=== PATIENT | female | born 1975 | race African-American/Black ===

== ENCOUNTER → 2017-06-03 | Outpatient (CLI) | payer BC, OTHER ==
--- NOTE | 2017-06-03 16:05 | RAD ---
DATE: 06/03/2017 EXAM: DIGITAL SCREEN BILAT W/CAD HISTORY: Routine screening COMPARISON: None This study was interpreted with the benefit of Computerized Aided Detection (CAD). FINDINGS: Breast Density: SCATTERED The breast parenchyma shows scattered fibroglandular densities. Breast parenchyma level B. There are no dominant suspicious masses, suspicious microcalcifications or evidence of architectural distortion. IMPRESSION: Negative mammogram BI-RADS CATEGORY: 1 NEGATIVE RECOMMENDED FOLLOW-UP: 12M 12 MONTH FOLLOW-UP PQRS compliance statement: Patient information was entered into a reminder system with a target due date 06/03/2018 for the next mammogram. Mammography is a sensitive method for finding small breast cancers, but it does not detect them all and is not a substitute for careful clinical examination. A negative mammogram does not negate a clinically suspicious finding and should not result in delay in biopsying a clinically suspicious abnormality. "Our facility is accredited by the [employer] Mammography Program."
== END | disposition home or self-care (01) ==
LOC: MAMMO 11:39
PROVIDERS: ATTEND Nurse Practitioner
DX: Z12.31 Encounter for screening mammogram for malignant neoplasm of breast (principal)
CPT/HCPCS: G0202; 77067

== ENCOUNTER 2018-02-22 14:19 | Emergency (ER) | payer BC, OTHER ==
[~2018-02-22] VITALS: Ht 154.9 cm; Wt 75.6 kg
[2018-02-22] MEDS ORDERED: PRED20TA PO (14:59)
--- NOTE | 2018-02-22 15:00 | PHYS DOC ---
Past History Past Medical History: Hypertension Past Surgical History: Other Adult General Chief Complaint Chief Complaint: INSECT BITE HPI HPI Patient is a 42-year-old female who presents for evaluation of erythema and blisters to the left posterior ankle. She states that she was recently working in the yard and may have come into contact with poison kamini. She states the blistered area is itchy and sometimes burning. She is noted complaints this time. She is alert and oriented 4, calm, and appears to be no distress. She denies fevers or chills, other skin lesions, or any other complaints. She denies seeing an insect bite her. Review of Systems Review of Systems Constitutional: Denies fever or chills [] Eyes: Denies change in visual acuity, redness, or eye pain [] HENT: Denies nasal congestion or sore throat [] Respiratory: Denies cough or shortness of breath [] Cardiovascular: No additional information not addressed in HPI [] GI: Denies abdominal pain, nausea, vomiting, bloody stools or diarrhea [] : Denies dysuria or hematuria [] Musculoskeletal: Denies back pain or joint pain [] Integument: blisters to left posterior ankle Neurologic: Denies headache, focal weakness or sensory changes [] Endocrine: Denies polyuria or polydipsia [] All other systems were reviewed and found to be within normal limits, except as documented in this note. Allergies Allergies Allergies Coded Allergies Type Severity Reaction Last Updated Verified Penicillins Allergy Unknown Rash 02/22/18 Yes Physical Exam Physical Exam Constitutional: Well developed, well nourished, no acute distress, non-toxic appearance. [] HENT: Normocephalic, atraumatic, bilateral external ears normal, oropharynx moist, no oral exudates, nose normal. [] Eyes: PERRLA, EOMI, conjunctiva normal, no discharge. [] Neck: Normal range of motion, no tenderness, supple, no stridor. [] Cardiovascular:Heart rate regular rhythm, no murmur [] Lungs & Thorax: Bilateral breath sounds clear to auscultation [] Abdomen: Bowel sounds normal, soft, no tenderness, no masses, no pulsatile masses. [] Skin: Warm, dry [] linear erythematous lesion with vesicle strongly suspicious for poison kamini contact dermatitis Back: No tenderness, no CVA tenderness. [] Extremities: No tenderness, no cyanosis, no clubbing, ROM intact, no edema. [] Neurologic: Alert and oriented X 3, normal motor function, normal sensory function, no focal deficits noted. [] Psychologic: Affect normal, judgement normal, mood normal. [] Current Patient Data Vital Signs Vital Signs Date Time Temp Pulse Resp B/P (MAP) Pulse Ox O2 Delivery O2 Flow Rate FiO2 02/22/18 14:19 98.4 78 18 97 Room Air EKG EKG [] Radiology/Procedures Radiology/Procedures [] Course & Med Decision Making Course & Med Decision Making Pertinent Labs and Imaging studies reviewed. (See chart for details) @1450 - Wound dressing applied, to be sent home with steroid therapy. Advised patient to follow up with her PCP in the next 2-3 days. Advised patient to return to the emergency department for new or worsening symptoms. Dragon Disclaimer Dragon Disclaimer This electronic medical record was generated, in whole or in part, using a voice recognition dictation system. Departure Departure: Impression: Primary Impression: Contact dermatitis Additional Impression: Poison kamini dermatitis Disposition: 01 HOME, SELF-CARE Condition: STABLE Referrals: ASHLEY DOLL APRN (PCP) Patient Instructions: Contact Dermatitis, Poison Kamini Additional Instructions: Take the steroids as prescribed. Follow-up with your doctor in the next 2-3 days. Return to the emergency department for new or worsening symptoms. Scripts Prednisone (PREDNISONE) 20 Mg Tablet 2 TAB PO DAILY, #15 TAB Two tablets daily for 5 days, then 1 tablet daily for 5 days Prov: MILAGROS BHATTI DO 02/22/18 Problem Qualifiers MILAGROS BHATTI DO Feb 22, 2018 15:00
[2018-02-22 15:10] VITALS: BP 93/65
== END 2018-02-22 15:10 | disposition home or self-care (01) ==
LOC: ER 14:19
DX: L25.5 Unspecified contact dermatitis due to plants, except food (principal); I10 Essential (primary) hypertension; Z88.0 Allergy status to penicillin
CPT/HCPCS: 99283

== ENCOUNTER 2018-06-12 11:00 | Emergency (ER) | payer BC ==
[~2018-06-12] VITALS: Ht 154.9 cm; Wt 75.3 kg
[~2018-06-12 11:00] MED LIST: PRED20TA PO
--- NOTE | 2018-06-12 11:25 | EKG ---
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
[2018-06-12 11:45] VITALS: BP_DIAS 73
[2018-06-12] MEDS ORDERED: KETOROLAC 30 MG/ML VIAL. IV ONE (11:45)
[2018-06-12] MEDS ORDERED: FAMOTIDINE 20 MG/2 ML VIAL IVP ONE (11:45)
--- NOTE | 2018-06-12 11:47 | ED.ADGEN ---
Past History Past Medical History: Hypertension Past Surgical History: Other Alcohol Use: None Drug Use: None Adult General Chief Complaint Chief Complaint Chest pain, midabdominal pain HPI HPI Patient is a 42 year old AA female who presents with epigastric, RU Q pain radiating to her chest and back starting last night. Symptoms worse this AM. Associated symptoms include nausea, vomiting. No constipation, diarrhea. No hematemesis, coffee-ground emesis. Denies history of peptic ulcer disease. Patient has IUD in place. [] Review of Systems Review of Systems Review symptoms as per history of present illness. All other review symptoms are negative All other systems were reviewed and found to be within normal limits, except as documented in this note. Current Medications Current Medications Current Medications Medications (Trade) Dose Ordered Sig/Luis Start Time Stop Time Status Last Admin Dose Admin Famotidine (Pepcid Vial) 20 mg 1X ONCE 06/12/18 11:45 06/12/18 11:46 DC 06/12/18 11:45 20 MG Ketorolac Tromethamine (Toradol 30mg Vial) 30 mg 1X ONCE 06/12/18 11:45 06/12/18 11:46 DC 06/12/18 11:45 30 MG Allergies Allergies Allergies Coded Allergies Type Severity Reaction Last Updated Verified Penicillins Allergy Unknown Rash 02/22/18 Yes Physical Exam Physical Exam Constitutional: Well developed moderate discomfort secondary to pain. [] HENT: Normocephalic, atraumatic, bilateral external ears normal, oropharynx moist, no oral exudates, nose normal. [] Eyes: PERRLA, EOMI, conjunctiva normal, no discharge. [] Neck: Normal range of motion, no tenderness, supple, no stridor. [] Cardiovascular:Heart rate regular rhythm, no murmur [] Lungs & Thorax: Bilateral breath sounds clear to auscultation [] Abdomen: Bowel sounds normal, soft, epigastric pain, right upper quadrant pain/ tenderness. No rebound rigidity or guarding. [] Skin: Warm, dry, no erythema, no rash. [] Back: No tenderness, no CVA tenderness. [] Extremities: No tenderness, no cyanosis, no clubbing, ROM intact, no edema. [] Neurologic: Alert and oriented X 3, normal motor function, normal sensory function, no focal deficits noted. [] Psychologic: Affect normal, judgement normal, mood normal. [] Current Patient Data Vital Signs Vital Signs Date Time Temp Pulse Resp B/P (MAP) Pulse Ox O2 Delivery O2 Flow Rate FiO2 06/12/18 12:15 74 14 103/ 98 Room Air 06/12/18 11:10 97.5 Lab Results Laboratory Tests Test 06/12/18 11:15 White Blood Count 5.0 x10^3/uL (4.0-11.0) Red Blood Count 5.41 x10^6/uL (3.50-5.40) H Hemoglobin 15.2 g/dL (12.0-15.5) Hematocrit 46.4 % (36.0-47.0) Mean Corpuscular Volume 86 fL (79-100) Mean Corpuscular Hemoglobin 28 pg (25-35) Mean Corpuscular Hemoglobin Concent 33 g/dL (31-37) Red Cell Distribution Width 13.7 % (11.5-14.5) Platelet Count 340 x10^3/uL (140-400) Neutrophils (%) (Auto) 46 % (31-73) Lymphocytes (%) (Auto) 42 % (24-48) Monocytes (%) (Auto) 7 % (0-9) Eosinophils (%) (Auto) 4 % (0-3) H Basophils (%) (Auto) 1 % (0-3) Neutrophils # (Auto) 2.3 x10^3uL (1.8-7.7) Lymphocytes # (Auto) 2.1 x10^3/uL (1.0-4.8) Monocytes # (Auto) 0.4 x10^3/uL (0.0-1.1) Eosinophils # (Auto) 0.2 x10^3/uL (0.0-0.7) Basophils # (Auto) 0.0 x10^3/uL (0.0-0.2) Sodium Level 137 mmol/L (136-145) Potassium Level 3.2 mmol/L (3.5-5.1) L Chloride Level 98 mmol/L (98-107) Carbon Dioxide Level 27 mmol/L (21-32) Anion Gap 12 (6-14) Blood Urea Nitrogen 12 mg/dL (7-20) Creatinine 1.0 mg/dL (0.6-1.0) Estimated GFR (Cockcroft-Gault) 73.6 BUN/Creatinine Ratio 12 (6-20) Glucose Level 106 mg/dL (70-99) H Calcium Level 9.8 mg/dL (8.5-10.1) Total Bilirubin 0.3 mg/dL (0.2-1.0) Aspartate Amino Transferase (AST) 17 U/L (15-37) Alanine Aminotransferase (ALT) 30 U/L (14-59) Alkaline Phosphatase 55 U/L (46-116) Troponin I Quantitative < 0.017 ng/mL (0-0.055) Total Protein 7.9 g/dL (6.4-8.2) Albumin 4.0 g/dL (3.4-5.0) Albumin/Globulin Ratio 1.0 (1.0-1.7) Lipase 119 U/L (73-393) EKG EKG EKG: Reviewed] Radiology/Procedures Radiology/Procedures [Gallbladder ultrasound: Negative] Course & Med Decision Making Course & Med Decision Making Pertinent Labs and Imaging studies reviewed. (See chart for details) [Abdominal pain, radiating to his chest abdomen and worse with eating. Symptoms resolved with Pepcid and Toradol. Lab work, EKG, abdominal ultrasound reviewed. Recommend supportive care, watchful waiting, close PCP follow-up. Return precautions reviewed. Patient verbalizes understanding agreement discharge instructions prior to departure.] Final Impression Final Impression [#1 chest pain #2 nausea vomiting #3 abdominal pain] Dragon Disclaimer Dragon Disclaimer This electronic medical record was generated, in whole or in part, using a voice recognition dictation system. MAXI SOTO DO Jun 12, 2018 11:47
[2018-06-12 12:07] LABS: BASO % 1 % (0-3); EOS # 0.2 x10^3/uL (0.0-0.7); EOS % 4 % (0-3); HEMATOCRIT 46.4 % (36.0-47.0); HEMOGLOBIN 15.2 g/dL (12.0-15.5); LYMPH # 2.1 x10^3/uL (1.0-4.8); LYMPH % 42 % (24-48); MEAN CORPUSCULAR HEMOGLOBIN 28 pg (25-35); MEAN CORPUSCULAR HGB CONC 33 g/dL (31-37); MEAN CORPUSCULAR VOLUME 86 fL (79-100); MONO # 0.4 x10^3/uL (0.0-1.1); MONO % 7 % (0-9); NEUT # 2.3 x10^3uL (1.8-7.7); NEUT % 46 % (31-73); PLATELET COUNT 340 x10^3/uL (140-400); RED BLOOD COUNT 5.41 x10^6/uL (3.50-5.40); RED CELL DISTRIBUTION WIDTH 13.7 % (11.5-14.5)
[2018-06-12 12:15] VITALS: BP_SYST 103
[2018-06-12 12:15] LABS: CALCIUM 9.8 mg/dL (8.5-10.1); GFR 73.6; POTASSIUM 3.2 mmol/L (3.5-5.1); TOTAL BILIRUBIN 0.3 mg/dL (0.2-1.0); TOTAL PROTEIN 7.9 g/dL (6.4-8.2)
--- NOTE | 2018-06-12 13:24 | RAD ---
Examination: Ultrasound abdomen limited HISTORY: History of upper abdomen pain COMPARISON: None available FINDINGS: The pancreas is not well-visualized. The echogenicity liver grossly appears unremarkable. The right lobe of the liver measures 14.5 cm. No evidence of gallstones. The right kidney measures 8.9 cm in length. The gallbladder wall thickness measures 1.2 mm. The common bile duct measures 4.7 mm in diameter. The visualized IVC within normal limits of dimension. IMPRESSION: Unremarkable visualized exam. Electronically signed by: Eliu Caldwell MD (06/12/2018 1:21 PM) [facility]
[2018-06-12] MEDS ORDERED: FAMO-63 PO (13:52)
[2018-06-12] MEDS ORDERED: ONDA4TAB10 SL (13:54)
== END 2018-06-12 14:01 | disposition home or self-care (01) ==
LOC: ER 11:00
DX: R10.13 Epigastric pain (principal); R10.11 Right upper quadrant pain; R11.2 Nausea with vomiting, unspecified; R07.89 Other chest pain; I10 Essential (primary) hypertension; Z88.0 Allergy status to penicillin
CPT/HCPCS: 36415; 76705; 80053; 83690; 84484; 85025; 93005; 96374; 96375; 99285; J1885; J3490